=== PATIENT | male | born 1995 | race African-American/Black ===

== ENCOUNTER 2017-05-03 12:45 | Emergency (ER) | payer SELFPAY ==
[~2017-05-03] VITALS: Ht 182.9 cm; Wt 77.1 kg
[2017-05-03 12:45] VITALS: BP 132/86
== END 2017-05-03 14:04 | disposition home or self-care (01) ==
LOC: ER 12:49
DX: S41.132A Puncture wound without foreign body of left upper arm, initial encounter (principal); S40.022A Contusion of left upper arm, initial encounter; R20.2 Paresthesia of skin; F32.9 Major depressive disorder, single episode, unspecified; W46.0XXA Contact with hypodermic needle, initial encounter; Y93.89 Activity, other specified; Y92.89 Other specified places as the place of occurrence of the external cause; Y99.0 Civilian activity done for income or pay
CPT/HCPCS: A4606; Z7610